=== PATIENT | female | born 1960 | race Caucasian/White ===

== ENCOUNTER → 2016-08-28 | Outpatient (CLI) | payer BC ==
[~2016-08-28] MED LIST: ACTIVELLA 1 MG1 EACH PO; ASPIRIN EC81 MG PO; COREG 3.1253.125 MG PO; COREG6.25 MG PO; COUMADIN ** IA5 MG PO; COUMADIN **IA2.5 MG PO; ESTRADIOL0.5 MG PO; LANOXIN (DIGI125 MCG PO; LASIX40 MG PO; PROTONIX40 MG PO; SOTALOL80 MG PO; TIKOSYN125 MCG PO; ZESTRIL2.5 MG PO
[2016-08-28 16:59] LABS: ALBUMIN 4.2 gm/dL (3.5-5.0); ALK PHOS 47 IU/L (33-138); ALT 23 IU/L (12-78); ANION GAP 14.7 (10.0-19.0); AST 20 IU/L (10-40); BLOOD UREA NITROGEN 12 mg/dL (6-24); CALCIUM 8.8 mg/dL (8.5-10.5); CHLORIDE 108 mMol/L (96-110); CO2 25 mMol/L (22-32); CREATININE 0.7 mg/dL (0.5-1.1); ESTIMATED GFR (MDRD EQUATION) > 60; POTASSIUM 4.7 mMol/L (3.7-5.1); SODIUM 143 mMol/L (135-145); TOTAL BILIRUBIN 0.6 mg/dL (0.0-1.5); TOTAL PROTEIN 7.4 g/dL (6.0-8.4)
== END | disposition disaster alternative care site (69) ==
LOC: LNHI 16:26
PROVIDERS: Internal Medicine Cardiovascular Disease
DX: I48.0 Paroxysmal atrial fibrillation (principal); R00.0 Tachycardia, unspecified; R53.83 Other fatigue

== ENCOUNTER → 2016-11-12 | Outpatient (CLI) | payer BC ==
[2016-11-12 17:02] LABS: ANION GAP 9.4 (10.0-19.0); CALCIUM 8.8 mg/dL (8.5-10.5); CREATININE 0.8 mg/dL (0.5-1.1); POTASSIUM 4.4 mMol/L (3.7-5.1)
== END ==
LOC: LNHI 16:37
PROVIDERS: Internal Medicine Cardiovascular Disease
DX: I50.22 Chronic systolic (congestive) heart failure (principal)

== ENCOUNTER → 2016-12-18 | Outpatient (CLI) | payer BC | LOC: LNHI 16:45 | DX: I48.0 Paroxysmal atrial fibrillation (principal); R00.0 Tachycardia, unspecified ==